=== PATIENT | female | born 1965 | race Caucasian/White ===

== ENCOUNTER 2025-07-08 14:50 | Outpatient (AMB) | payer MEDICARE, SELFPAY ==
[2025-07-08 15:01] VITALS: BMI 31.6
--- NOTE | 2025-07-08 15:01 | A.PHYSOV ---
Vital Signs 07/08/25 15:01 Height 5 ft 5 in Weight 190 lb BMI 31.6 Intake Visit Reasons: 1YR FUV Intake Note: Patient is a 59 year old female in office today for a 1 year old follow up visit. Allergies amoxicillin (From Augmentin) Allergy (Unknown, Verified 07/08/25 14:59) Unknown clavulanic acid (From Augmentin) Allergy (Unknown, Verified 07/08/25 14:59) Unknown hydromorphone (From Dilaudid) Allergy (Unknown, Verified 07/08/25 14:59) Unknown aquacel Allergy (Unknown, Uncoded 07/02/25 16:09) Unknown HPI Comments Details: History of Present Illness The patient is a 59 year old female presenting for a follow-up visit for chronic lower back pain and lumbar radiculopathy, and for evaluation of acute pain following a recent fall. She sustained a fall on a concrete step approximately 10 days ago, landing on her back, hip, and buttock. Since the fall, she has experienced excruciating right rib pain that is exacerbated by walking, moving, coughing, and sneezing, and is also very painful at night. She has a large black and blue bruise on her buttock from the impact. She has been self-treating with 1000 mg of acetaminophen and 800 mg of ibuprofen. The patient has a history of chronic lower back pain and lumbar radiculopathy, for which her condition had been stable. She underwent an L5-S1 epidural injection on December 25, 2017, which provided only short-term relief. A lumbar sacral spine MRI from October 22, 2013, was consistent with L4-L5 disc desiccation and moderate central canal stenosis. Her past medical history also includes rheumatoid arthritis and fibromyalgia. She takes cyclobenzaprine 10 mg three times a day as needed. Pain Description - Onset: The patient reports acute pain that began after a fall on a concrete step approximately 10 days ago. - Location: The pain is located in her ribs, back, and buttock. - Quality: The pain is described as excruciating and very sore. - Exacerbating factors: The pain is worse with walking, moving, coughing, and sneezing. - Interference with function: The pain makes it very painful to sleep at night. - Associated signs: The patient reports a large, black and blue bruise on her buttock where she landed. Results - Imaging: A lumbar sacral spine MRI from October 22, 2013, revealed L4-L5 disc desiccation and moderate central canal stenosis. [facility] Medical History (Updated 07/08/25 @ 15:16 by Omkar Borden DO) Rib pain on right side Muscle spasm Lumbar radiculitis Surgical History (Updated 07/02/25 @ 16:08 by Dee Calderón MA) H/O shoulder surgery History of knee surgery History of back surgery Social History (Updated 07/08/25 @ 15:02 by Dee Calderón MA) Household Members: None Alcohol intake: current Alcohol intake frequency: a few times a month Alcohol type: wine Patient Tobacco Use Status: Never used Tobacco Use of substances other than those prescribed or required for medical reasons: No Current occupational status: disabled Review of Systems Narrative Review of Systems - Musculoskeletal: Reports excruciating pain in the right ribs and soreness in the back and buttock following a fall. - Respiratory: Reports pain with coughing and sneezing but is able to take deep breaths. - Integumentary: Reports a large black and blue bruise on her buttock. Patient denies any change in bowel bladder habits. She denies any fever or chills. Physical Exam Exam Exam: Physical Exam - Chest Wall: Palpation of the ribs reveals no crepitance. Pain with palpation. - Musculoskeletal: Examination of the hip does not elicit pain with manipulation. - Musculoskeletal: Palpation of the back elicits tenderness. Dural tension signs were negative. Patient ambulates with a single-point cane. Heel walk and toe walk were not tested. Neurological examination was nonfocal. She demonstrated no upper motor neuron signs. Vital Signs: BMI result Body Mass Index 31.6 Assessment & Plan Assessment & Plan (1) Lumbar radiculitis: Code(s): M54.16 - Radiculopathy, lumbar region Category: Medical (2) Muscle spasm: Code(s): M62.838 - Other muscle spasm Category: Medical (3) Rib pain on right side: Code(s): R07.89 - Other chest pain Category: Medical Plan Pain Management - Affect: The patient states, I'm tired of being in so much pain all the time. - Analgesia: She has been taking 1000 mg of acetaminophen and 800 mg of ibuprofen for pain. - Activities of Daily Living: Her pain interferes with walking, general movement, and sleeping. - Aberrant Drug Related Behaviors: The patient requested Tylenol with Codeine but explicitly stated she does not want anything strong due to a family history of drug addiction. - Aberrant Drug Related Behaviors: She reports keeping all her medications in a safe to avoid any temptation for her family members. Plan Patient was informed and verbally consented to the use of an ambient scribe for clinic note documentation during this visit. 1. Acute Pain Due To Fall The patient's acute, excruciating pain is attributed to a fall 10 days prior, resulting in suspected rib contusion and a noted buttock contusion. Diagnostic imaging is deferred as it is unlikely to change advisor. For pain management, a prescription for acetaminophen-codeine will be provided for short-term use, along with an 18-day prednisone taper to address inflammation. The patient was instructed to avoid ibuprofen while taking prednisone and to limit total daily acetaminophen intake to 3000 mg. She is to follow up in four weeks if her symptoms do not improve for further investigation. 2. Chronic Lower Back Pain With Lumbar Radiculopathy The patient's chronic back condition is managed with cyclobenzaprine 10 mg as needed. A three-month refill of cyclobenzaprine will be sent to her mail-in pharmacy, [facility]. Discussion Notes I discussed with the patient that her acute pain is likely due to bruised ribs from her fall and that this can take about four weeks to heal. We agreed to defer x-rays at this time as the results would not alter the treatment plan. I explained the plan to prescribe Tylenol with Codeine for short-term pain relief and a prednisone taper to help with the inflammation and pain. I specifically instructed her not to take ibuprofen while on prednisone and to limit her total daily dose of acetaminophen to 3000 mg to remain on the safe side. I also informed her that I will send a refill for her cyclobenzaprine to her mail-order pharmacy. I advised her to call for a follow-up appointment in one month if her pain is not better, at which point we will investigate further. Patient Instructions - A prescription for Tylenol with Codeine has been sent to your local pharmacy. - Take the prednisone as prescribed for 18 days to help with pain and inflammation. - Do not take ibuprofen while you are taking prednisone. - Do not take more than 3000 mg of Tylenol (acetaminophen) in a 24-hour period. - A refill for your cyclobenzaprine has been sent to your mail-order pharmacy. - It may take up to four weeks for your rib pain to improve. - If you are not feeling better in one month, please call the office to schedule a follow-up appointment for further evaluation. Medications: New cyclobenzaprine 10 mg PO TID PRN 270 tabs 3RF muscle spasm 90 days M54.16 - Radiculopathy, lumbar region, M62.838 - Other muscle spasm prednisone Takes 6 tablets oral for 3 days, then 5 tablets oral for 3 days, then 4 tablets oral for 3 days, then 3 tablets oral for 3 days, then 2 tablets oral for 3 days, then 1 tablet per oral for 3 days 10 mg PO DIRECTED 63 tabs 0RF Acute rib pain M54.16 - Radiculopathy, lumbar region, M54.9 - Dorsalgia, unspecified, R07.89 - Other chest pain acetaminophen-codeine 300-30 mg Partial fill upon request 1 tab PO Q6H PRN 28 tabs 0RF pain 7 days R07.89 - Other chest pain Coding Level of Care Code Est Pt Level 4 (93120) Add On Problem Visit Only Diagnoses Lumbar radiculitis M54.16 Muscle spasm M62.838 Rib pain on right side R07.89
--- OUTSIDE RECORDS SUMMARY | 2025-07-08 19:10 | XMS_ITS | Patient Health Record ---
Author Organization [facility] Address [address] [place] [address] Care Team Providers Care Tank Driver Name Role Phone Екатерина POLANCO [place] [facility] r Unavailable Donn Gaines Unavailable [phone] Allergies Allergen (clinical drug ingredient) Drug/Non Drug Allergy documented on EMR Reaction Allergy Type Onset Date Status amoxicillin / clavulanate Augmentin Unknown Drug Allergy Active injectable steriods Unknown Drug Allergy Active Reason For Referral No Information Medications Medication SIG (Take, Route, Frequency, Duration) Notes Start Date End Date Status Gabapentin 300 MG 1 capsule before bedtime Orally Once a day Active Flovent HFA Active Fluticasone Propionate HFA 220 MCG/ACT 1 puff Inhalation Twice a day Active Ventolin HFA Active Flonase 50 MCG/ACT 1 spray in each nostril Nasally Once a day Active Ibuprofen 800 MG 1 tablet with food o r milk as needed Orally Three times a day Not-Taking Physical Therapy 3-4x per week for 3- 4 weeks 01/05/2018 Active Acetaminophen 500 MG 2 capsules as neede d Orally every 6 hrs Active Triamcinolone & Emollient 0.1 % 1 application Externally Twice a day Active Sertraline HCl 100 MG 1 tablet Orally On ce a day Active metroNIDAZOLE 0.75 % 1 application to affected area Externally Twice a day Active hydrOXYzine HCl 10 MG Orally Active oxyCODONE HCl Active Cyclobenzaprine HCl 10 MG 1 tablet as ne eded Orally Three times a day Active Cimetidine 400 MG 1 tablet at bedtime Orally Once a day Active Night Splint AFO - L1930 as directed 01/05/2018 Active Ciclopirox 0.77 % 1 application to affected area Externally Twice a day Active Keflex 500 MG 1 capsule Orally dm ry 12 hrs; Duration: 10 day(s) 01/05/2018 Active buPROPion HCl ER (XL) 300 MG 1 tablet in the morning Orally Once a day Active Night Splint AFO - L1930 as directed 09/08/2017 Active Social History Tobacco Use: Social History Observation Description Date Details (start date - stop date) Never Smoker NA - NA Tobacco Use/Smoking Question Answer Notes Are you a: nonsmoker Additional Findings: Tobacco Non-User Current no n-smoker Alcohol Screen Question Answer Notes Did you have a drink containing alcohol in the p ast year? Yes Points 0 Interpretation Negative Tobacco use other than smoking: Question Answer Notes Are you an other tobacco user? No Problems Problem Type SNOMED Code ICD Code Onset Dates Problem Status W/U Status Risk Notes Problem Localized, primary osteoarthritis of the ankle and/or foot (087829344) Primary osteoarthrit is, right ankle and foot (M19.071) Active confirmed Problem Acquired hallux valgus (35833920) Hallux valgus (acquired), right foot (M20.11) Active confirmed Problem Acquired hammer toe of right foot ([id number]) Other hammer toe(s) (acquired), right foot (M20.41) Active confirmed Plan Of Treatment Pending Test Test Name Order Date X ray : Foot, left 2V 09/08/2017 X ray : Foot, right 3V 09/08/2017 [id number], [id number]/[id number], JOINT/BURSA 0 10/06/2017 Insurance Providers Payer Name Payer Address Payer Phone Subscriber Number Group Number Insured Name Patient Relationship to Insured Coverage Start Date Coverage End Date Medicare National Govt [email or web address] [address] [place] [address] [id number] Chinyere Salas Self - patient is the insured [employer] [address] [place] [address] [phone] [id number] Chinyere Salas Self - patient is the insured Medical (General) History Medical History History ICD Code Anxiety Arthritis asthma Back,Hip,and Knee pain Broken bones Depression Fibromyalgia Headaches Measles Mumps Chicken pox Reflux ( GERD) Sciatica chronic sinusitis Thyroid disorder mood disorder L 3 - 4 L 4 - 5 L 5 - S1 osteoarthritis Surgical History Surgery Date(Month/Year) ankle surgery 01/22/2006 colonoscopy 02/06/2017 knee surgery 08/14/2015 Left knee replacement 10/23/17 Back surgery 01/2018 Hospitalization History Reason Date(Month/Year) Left knee replacement 10/23/17
--- OUTSIDE RECORDS SUMMARY | 2025-07-08 19:10 | XMS_ITS | Clinical Summary ---
Author Organization [facility] [address] [place] [address] [place] [phone] Phone Care Team Providers Care Clinical Director Name Role Phone Karen Brooks MD Primary Care Prov ider Allergies Active Allergy Reactions Criticality Noted Date Comments Amoxicillin-Pot Clavulanate Medium 11/22/2005 Augmentin Yeast infection Hydromorphone Itching,Nausea And Vomiting 12/19/2017 Dilaudid Wound Dressings 08/31/2020 Aquacel Extra Hydrofiber [Wound Dressings] Medications acetaminophen (TYLENOL 8 HOUR) 650 mg 8 hr tablet Take 1 Tablet by mouth every 8 hours as needed for Pain. 4 Active ascorbic acid (VITAMIN C) 500 mg chewable tablet Take by mouth. Activ e clindamycin (CLEOCIN) 300 mg capsule Take 2 Capsules by mouth Once. 2 capsules by mouth, 1/2 hr prior to dental work as directed 4 Active cyclobenzaprine (FLEXERIL) 10 mg tablet Take 1 Tablet by mouth 2 times daily as needed for Muscle spasms. 4 Active fluticasone HFA (FLOVENT HFA) 220 mcg/actuation inhaler Inhale 2 Puffs into the lungs 2 times daily for 180 days. 8 Active glucosamine-cho ndroit-vit C-Mn 500-400 mg capsule Take by mouth. Activ e MAGNESIUM ORAL Take by mouth. Active ZINC ORAL Take by mouth. Activ e triamcinolone (KENALOG) 0.1 % ointment Apply very thin layer to affected skin twice daily prior to moisturizer until eczema is treated. 9 Active TURMERIC ORAL Take by mouth. A ctive buPROPion XL (WELLBUTRIN XL) 150 mg 24 hr tablet TAKE 3 TABLETS EVERY MORNING 270 tablet 3 4 Active albuterol HFA (PROAIR HFA ; PROVENTIL HFA ; VENTOLIN HFA) 90 mcg/actuation inhaler Inhale 2 puffs by mouth every 6 (six) hours if needed for wheezing. 54 g 5 Active Active Problems Problem Noted Date Diagnosed Date Eczema, dyshidrotic 05/24/2024 Mild persistent asthma 10/20/2021 Assessment & Plan (01/06/2025 1:53 PM EDT): Asthma has been well-controlled. ACT is 19. Will send a new prescription for albuterol according to insurance coverage. Assessment & Plan (07/02/2024 12:08 PM EST): Asthma is well controlled. No recent visits to ER or night symptoms. Currently on albuterol as needed, and Flovent as a controller medication. We will continue same medication. Orders: Comprehensive metabolic panel; Future Lipid panel with reflex to direct LDL; Future Thyroid stimulating hormone; Future Primary insomnia 10/20/2021 Mallet finger of right hand 08/19/2019 Overview (05/24/2024): 3rd finger, minor trauma 05/11. Surgery 08/12 Osteoarthritis of finger, right 08/19/2019 Rotator cuff tear, non-traumatic, right 08/19/19 20 Overview (05/24/2024): Partial tear, had surgery 10/09 Fibromyalgia 05/26/2017 PVC's (premature ventricular contractions) 12/26 Uterine leiomyoma 08/16/2016 Lumbar disc herniation 12/03/2015 Brachial neuritis or radiculitis 11/05/2009 Overview (05/24/2024): IMO update Cervicocranial syndrome 11/05/2009 Esophageal reflux 12/01/2006 Overview (05/24/2024): H/o vocal cord lacs by ENT Allergic rhinitis 11/25/2005 Depressive disorder 11/25/2005 Assessment & Plan (01/06/2025 1:53 PM EDT): Patient follows regularly with behavioral health. She is currently on bupropion with good tolerance. No exacerbation of symptoms. Recommended to keep taking the same medication. Assessment & Plan (07/02/2024 12:08 PM EST): Follows regularly with . Currently on bupropion. No exacerbation of symptoms, no SI, HI, will continue same medication. Encouraged to keep the appts with her therapist. 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 Last TSH wnl. Will recheck before next visit. Orders: Comprehensive metabolic panel; Future Lipid panel with reflex to direct LDL; Future Thyroid stimulating hormone; Future Immunizations Immunization Administration Dates Next Due Hepatitis B (Lxblmib-Q-Qbxzx , Recombivax HB-Adult) 19yo and older 02/02/2015,09/30/2014,08/07/2014 Influenza Quadravalent, MDCK , 0.5ml, with preservative (Flucelvax) 6mo and older 05/09/2017 Influenza trivalent, 0.5mL, preservative free (Fluarix; FluLaval; Fluzone) ages 6mo and older (Afluria) 3 years and older 05/09/2016,04/13/2015,05/22/2014,2012,05/03/2011,05/26/2008,05/26/2006 Td Tetanus diptheria (Tdvax) 7yo and older 04/30/1996 Tdap Tetanus diptheria acell ular pertussis (Boostrix; Adacel) 7yo and older 12/06/2022,12/30/2008 Surgical History Surgery Date Site/Laterality Comments OTHER SURGICAL HISTORY 01/22/2006 Right PROCEDURE: UT OPEN TX DISTAL FIBULAR FRACTURE LAT MALLEOLUS OTHER SURGICAL HISTORY 2006 or earlier PROCEDURE: UT EXC B9 LESION MRGN XCP SK TG T/A/L 0.6-1.0 CM; COMMENT: lipoma under arm ESOPHAGOGASTRODUODENOSCOPY 11/03/2011 PROCEDURE: UT ESOPHAGOGASTRODUODENOSCOPY TRANSORAL DIAGNOSTIC; COMMENT: normal (fundic galnd polyps) KNEE SURGERY 08/14/2015 Left PROCEDURE: HISTORICAL KNEE SURGERY; COMMENT: removed part of meniscus COLONOSCOPY 02/06/2017 PROCEDURE: HISTORICAL COLONOSCOPY; COMMENT: inflammatory polyp and tics; repeat in 10 yrs BACK SURGERY 01/22/2018 Left PROCEDURE: HISTORICAL BACK SURGERY; COMMENT: Left L4-5 discectomy; Dr. Franco OTHER SURGICAL HISTORY 09/2018 Right PROCEDURE: UT SURGICAL ARTHROSCOPY SHOULDER LMTD DBRDMT 07/25; COMMENT: decompressive surgery HYSTEROSCOPY 07/05/2021 PROCEDURE: UT HYSTEROSCOPY BX ENDOMETRIUM&/POLYPC W/WO D&C; COMMENT: PMB, Dr. Dann Pisano Medical History Medical History Date Comments Bundle branch block, unspecified DX:Bundle branch block, unspecified; COMMENT: INCOMP RBBB Allergic rhinitis, cause unspecified DX:Allergic rhinitis, cause unspecified Depressive disorder, not els ewhere classified DX:Depressive disorder, not elsewhere classified Other diseases of vocal cords DX :Other diseases of vocal cords; COMMENT: nodules GERD (gastroesophageal reflux disease) DX:GERD (gastroesophageal reflux disease); COMMENT: PUD Unspecified hypothyroidism DX:Un specified hypothyroidism Eczema, dyshidrotic DX:Eczema, d yshidrotic History of MRSA infection DX:His tory of MRSA infection; COMMENT: in groin Fibromyalgia DX:Fibromyalgia Osteoarthritis DX:Osteoarthriti s Subclinical hypothyroidism DX:Peña bclinical hypothyroidism; COMMENT: no meds Mallet finger of right hand 08/19/2019 DX:M allet finger of right hand; COMMENT: 3rd finger, minor trauma 05/11. Surgery 08/12 Osteoarthritis of finger, right 08/19/2019 DX:Osteoarthritis of finger, right Family History Medical History Relation Name Comments Other: pancreatic cancer Aunt joselito apple Other: cardiac arrest Brother 36 YO, Bipolar, Liver disease, Narcotic use Depression Daughter Other: personality disorder Daughter Hypertension Father Other: diverticulitis Father Other: heart Father mitral valve Stroke Father mild 50's Other: Other Maternal Grandmother Other: liver Mother Other: nerve damage ankle af ter fracture Mother Other: osteoporosis Mother Other: rosacia Mother Thyroid disease Mother underactive Stomach cancer Other paternal cous in Lung cancer Paternal Grandmother ADD / ADHD Son Bipolar disorder Son Depression Son Diabetes Son Other: CHRIS Son Testicular cancer Uncle paternal Blindness Neg Hx Breast cancer Neg Hx Cataracts Neg Hx Colon cancer Neg Hx Glaucoma Neg Hx Macular degeneration Neg Hx Ovarian cancer Neg Hx Strabismus Neg Hx Uterine cancer Neg Hx Relation Name Status Comments Aunt paternal Brother Daughter Alive Father (Age 68) diverticul itis; valve replacement; AI hepatitis; [place], CVA x 5, DM; pancreatitis, panc cancer Maternal Grandfather Maternal Grandmother meningi tis Mother Alive thyroid - rosac ea; CHRIS; DM Other Paternal Grandfather cva Paternal Grandmother lung ca - - cabg Son Alive Uncle paternal Social History Tobacco Use Types Packs/Day Years Used Date Smoking Tobacco: Never Smokeless Tobacco: Never Tobacco Cessation:Counseling Given: Not Answered Alcohol Use Standard Drinks/Week Comments Yes 0 (1 standard drink = 0.6 oz pur e alcohol) Housing Instability Answer Date Recorde d Are you worried that in the next 2 months you may not have stable housing? No 07/02/2024 Food Access & Nutrition Answer Date Rec orded Do you have access to a vari ety of food including fruits and vegetables? Yes 07/02/2024 Health Literacy Answer Date Recorded How often do you need to hav e someone help you when you read instructions, pamphlets, or other written material from your doctor or pharmacy? Never 07/02/2024 Caregiver: How often do you need to have someone help you when you read instructions, pamphlets, or other written material from your doctor or pharmacy? Not on file 07/02/2024 Financial Risk Answer Date Recorded How hard is it for you to pa y for the very basics like food, housing, medical care, and air conditioning / heating? Not very hard 07/02/2024 Transportation Answer Date Recorded Has the lack of transportati on kept you from meetings, work, or from getting things needed for daily living? No Has the lack of transportati on kept you from medical appointments or from getting medications? No 07/02/2024 Social Isolation Answer Date Recorded How often do you feel lonely or isolated from th ose around you? Never 07/02/2024 Food Risk Answer Date Recorded Within the past 12 months we worried whether our food would run out before we got money to buy more. Never true 07/02/2024 Within the past 12 months th e food we bought just didn't last and we didn't have money to get more. Never true 07/02/2024 Dependent Care Answer Date Recorded Do you need help finding or paying for care for your loved ones. For example, child welfare counselor or elderly care for an older adult? No 07/02/2024 Education Answer Date Recorded Do you think completing more education or training, like finishing a GED, going to college, or learning a trade, would be helpful for you? No 07/02/2024 Employment and Income Answer Date Recor ded During the last four weeks, have you been actively looking for work? No 07/02/2024 Living Situation Answer Date Recorded What is your living situation? Unrecognized valu e 07/02/2024 Comments No Sex and Gender Information Value Date Recorded Sex Assigned at Not on file Legal Sex Female 7:10 AM EST Gender Identity Not on file Sexual Orientation Straight 05/28/2024 7: 48 PM EST Last Filed Vital Signs Vital Sign Reading Time Taken Comments Blood Pressure 113/62 01/06/2025 10:55 AM EDT Pulse 69 01/06/2025 10:55 AM EDT Temperature 35.9 C (96.7 F) 01/06/2025 10:55 AM EDT Respiratory Rate 15 01/06/2025 10:55 AM EDT Oxygen Saturation - - Inhaled Oxygen Concentration - - Weight 86.4 kg (190 lb 6.4 oz) 01/06/2025 10:55 AM EDT Height 162.6 cm (5' 4 ) 01/06/2025 10:55 AM EDT Body Mass Index 32.68 01/06/2025 10:55 AM EDT Plan of Treatment Upcoming Encounters Date Type Department Care Team (Late st Contact Info) Description 07/09/2025 9:30 AM EST Office Visit Adult Medicine [facility] [address], [place] [phone] [place] [address] [place], [place] 07/25/2025 1:50 PM EST Appointment Radiology Department - [address] [phone] Health Maintenance Due Date Last Done Comments Pneumococcal Vaccine: 50+ Years (1 of 2 - PCV) 1984 RSV Immunization Adult Patients (1 - Risk 50-74 years 1-dose series) 12/10/2015 Zoster Vaccines (1 of 2) 12/10/2015 HIV Screening 07/02/2022 Medicare Annual Wellness Visit 07/02/2022 COVID-19 Vaccine (1 - season) 2025 Influenza Vaccine (#1) 2025 7, 05/09/2016, 04/13/2015, Additional history exists Social Influencers of Health Screening 07/02/2025 07/02/2024 Cervical Cancer Screening: HPV 04/26/2026 04/26/2021 Breast Cancer Screening 05/23/2026 05/23/20 24, 05/23/2024, 05/13/2023, Additional history exists Colorectal Cancer Screening: Colonoscopy 02/06/2027 02/06/2017 Cholesterol Screening (Lipid Panel) 12/30/2029 12/30/2024, 11/24/2023, 11/24/2023 DTaP,Tdap,and Td Vaccines (4 - Td or Tdap) 12/06/2032 12/06/2022, 12/30/2008, 04/30/1996 Osteoporosis Screening (Bone Density Screening) 10/17/2034 10/17/2024 Hepatitis B Vaccines Completed 02/02/2015, 09/30/2014, 08/07/2014 Hepatitis C Screening Completed 07/10/2015 Depression Screening Completed 01/06/2025, 12/19/19 24 HIB Vaccines Aged Out No longer eligi ble based on patient's age to complete this topic HPV Vaccines Aged Out No longer eligi ble based on patient's age to complete this topic Hepatitis A Vaccines Aged Out No long er eligible based on patient's age to complete this topic IPV Vaccines Aged Out No longer eligi ble based on patient's age to complete this topic MMR Vaccines Aged Out No longer eligi ble based on patient's age to complete this topic Meningococcal ACWY Vaccine Aged Out N o longer eligible based on patient's age to complete this topic Meningococcal B Vaccine Aged Out No l onger eligible based on patient's age to complete this topic RSV Immunization Patients Under 20 months Aged Out No longer eligible based on patient's age to complete this topic Varicella Vaccines Aged Out No longer eligible based on patient's age to complete this topic Procedures Procedure Name Priority Date/Time Associated Diagnosis Comments LIPID PANEL WITH REFLEX TO DIRECT LDL Routine 12/30/2024 12:01 PM EDT Depressive disorder Mild persistent asthma without complication Subclinical hypothyroidism BD BONE DENSITY DXA AXIAL SKELETON Routine 10/17/2024 10:23 AM EDT Encounter for screening for osteoporosis Postmenopausal SCREENING MAMMOGRAPHY BI 2-VIEW BREAST INC CAD Routine 05/23/2024 11:09 AM EDT Encounter for screening mammogram for malignant neoplasm of breast DEPRESSION SCREENING Routine 12/19/2023 HPV Routine 04/26/2021 COLONOSCOPY Routine 02/06/2017 HEPATITIS C SCREENING Routine 07/10/2015 from Last 3 Months or Most Recently Relevant to Health Maintenance Results * (ABNORMAL) Lipid panel with reflex to direct LDL (12/30/2024 12:01 PM EDT) Cholesterol 213(H) 0 - 200 mg/dL LAB CHEMISTRY METHOD 12/30/2024 6:11 PM EDT [facility] Triglycerides 87 0 - 150 mg/dL LAB CHEMISTRY METHOD 12/30/2024 6:11 PM EDT [facility] HDL 64 >=40 mg/dL LAB CHEMISTRY METHOD 12/30/2024 6:11 PM EDT [facility] LDL Calculated 132(H) 0 - 100 mg/dL LAB CHEMISTRY METHOD 12/30/2024 6:11 PM EDT [facility] VLDL Cholesterol Enrico 17.4 mg/dL LAB CHEMISTRY METHOD 12/30/2024 6:11 PM EDT [facility] Non HDL Chol. (LDL+VLDL) 149(H) <145 mg/dL LAB CHEMISTRY METHOD 12/30/2024 6:11 PM EDT [facility] Chol/HDL Ratio 3.3 0.0 - 4.4 LAB CHEMISTRY METHOD 12/30/2024 6:11 PM EDT [facility] Blood Venous blood specimen / Unknown Venipuncture / Unknown 12/30/2024 12:01 PM EDT 12/30/2024 12:01 PM EDT us Karen Brooks MD LAB BLOOD ORDERABL ES Final Result [facility] [address] [place] [address], [place] [phone] * BD Bone Density DXA Axial Skeleton (10/17/2024 10:23 AM EDT) Anatomical Region Laterality Modality Wrist, Hip, L-spine Bone Densito metry 10/17/2024 5:22 PM EDT Impressions 10/17/2024 5:27 PM EDT Osteopenia Reference Information: The T-score is the number of standard deviations above or below the standard which is normal for young adults at their peak bone mineral density. The World Health Organization (WHO) interprets the T-scores as follows: At or above -1 SD Normal bone density Between -1 and -2.5 SD Osteopenia At or below -2.5 SD Osteoporosis -------- FINAL REPORT -------- Dictated By: Thuy Alvarado Dictated Date: 10/17/2024 17:22 ET Assigned Physician: Thuy Alvarado Reviewed and Electronically Signed By: Thuy Alvarado Signed Date: 10/17/2024 17:27 ET Workstation ID: [id number] Transcribed By: Self Edit Transcribed Date: 10/17/2024 17:22 ET Narrative 10/17/2024 5:27 PM EDT STUDY: DUAL ENERGY X-RAY ABSORPTIOMETRY / DXA REASON FOR EXAM: Female, 58 years old Bone density screening, risk factors TECHNIQUE: Bone Mineral Density (BMD) measurements of the lumbar spine and left hip were obtained using [employer] W ([id number]/N [id number]). COMPARISON: January 13, 2016 FINDINGS: L1-L4 BMD: 0.980 g/cm2 L1-L4 T score: -0.6. This corresponds to Normal bone density. This represents a -1.6 % decrease in bone density compared with prior exam from January 13, 2016. Left femoral neck BMD: 0.725 g/cm2 Left femoral neck T score: -1.1. This corresponds to osteopenia. Left total hip BMD: 0.956 g/cm2 Left total hip T score: 0.1. This corresponds to Normal bone density. This represents a -1.4 % decrease in bone density compared with prior exam from January 13, 2016. * - Indicates a statistically significant change. FRAX score: 10 year risk of major osteoporotic fracture 11%, 10 year risk of hip fracture 0.7% Procedure Note Thuy Alvarado MD - 10/17/2024 STUDY: DUAL ENERGY X-RAY ABSORPTIOMETRY / DXA REASON FOR EXAM: Female, 58 years old Bone density screening, riskfactors TECHNIQUE: Bone Mineral Density (BMD) measurements of the lumbar spineand left hip were obtained using [employer] W ([id number]/N [id number]). COMPARISON: January 13, 2016 FINDINGS: L1-L4 BMD: 0.980 g/cm2 L1-L4 T score: -0.6. This corresponds to Normal bone density. This represents a -1.6 % decrease in bone density compared with prior examfrom January 13, 2016. Left femoral neck BMD: 0.725 g/cm2 Left femoral neck T score: -1.1. This corresponds to osteopenia. Left total hip BMD: 0.956 g/cm2 Left total hip T score: 0.1. This corresponds to Normal bone density. This represents a -1.4 % decrease in bone density compared with prior examfrom January 13, 2016. * - Indicates a statistically significant change. FRAX score: 10 year risk of major osteoporotic fracture 11%, 10 year riskof hip fracture 0.7% IMPRESSION: Osteopenia Reference Information: The T-score is the number of standard deviations above or below thestandard which is normal for young adults at their peak bone mineraldensity. The World Health Organization (WHO) interprets the T-scores asfollows: At or above -1 SD Normal bone density Between -1 and -2.5 SD Osteopenia At or below -2.5 SD Osteoporosis -------- FINAL REPORT -------- Dictated By: Thuy Alvarado Dictated Date: 10/17/2024 17:22 ET Assigned Physician: Thuy Alvarado Reviewed and Electronically Signed By: Thuy Alvarado Signed Date: 10/17/2024 17:27 ET Workstation ID: [id number] Transcribed By: Self Edit Transcribed Date: 10/17/2024 17:22 ET Karen Brooks MD IMG DXA PROCEDURES Final Result * SCREENING MAMMOGRAPHY BI 2-VIEW BREAST INC CAD (05/23/2024 11:09 AM EDT) Anatomical Region Laterality Modality Radiographic Emelia ging 05/13/2023 10:0 1 AM EDT Narrative 05/23/2024 4:50 PM EDT This is a summary report. The complete report is available in the patient's medical record. If you cannot access the medical record, please contact the sending organization for a detailed fax or copy. Study: SCREENING MAMMOGRAPHY BI 2-VIEW BREAST INC CAD Technique: Bilateral full-field digital screening mammography is obtained and read in conjunction with computer aided detection. Tomosynthesis as well as 2D C-View imaging were obtained. Comparison: Comparison made to multiple priors, most recent May 13, 2023, and most remote April 23, 2015. Breast composition: There are scattered areas of fibroglandular density. Bilateral breasts: No significant masses, suspicious calcifications or other abnormalities are seen in either breast. IMPRESSION: Impression: Bilateral breasts: Negative, no specific mammographic evidence of malignancy. Normal interval follow-up is recommended in 12 months. BI-RADS: Category 1: Negative [address] [id number] [phone] Procedure Note Thuy Alvarado MD - 05/25/2024 This is a summary report. The complete report is available in thepatient's medical record. If you cannot access the medical record, pleasecontact the sending organization for a detailed fax or copy. Study: SCREENING MAMMOGRAPHY BI 2-VIEW BREAST INC CAD Technique: Bilateral full-field digital screening mammography is obtainedand read in conjunction with computer aided detection. Tomosynthesis aswell as 2D C-View imaging were obtained. Comparison: Comparison made to multiple priors, most recent April, and most remote April 23, 2015. Breast composition: There are scattered areas of fibroglandular density. Bilateral breasts: No significant masses, suspicious calcifications orother abnormalities are seen in either breast. IMPRESSION: Impression: Bilateral breasts: Negative, no specific mammographic evidence ofmalignancy. Normal interval follow-up is recommended in 12 months. BI-RADS: Category 1: Negative [address] [phone] us Susi Walton MD IMG XR PROCEDURES Final Res ult * Depression Screening (12/19/2023) Depression Screening Abstracted Historical Provider HEALTH MAINTENANCE Final Result * Cervical Cancer Screening: HPV (04/26/2021) [facility] Cervical Cancer Screening: HPV Negative, Abstracted Historical Provider HEALTH MAINTENANCE Final Result * Colonoscopy (02/06/2017) [facility] Colonoscopy No Interpretation , Abstracted Anatomical Region Laterality Modality Other [facility] Provider HEALTH MAINTENANCE Final Result * Hepatitis C Screening (07/10/2015) [facility] Hepatitis C Screening Abstracted [facility] Provider HEALTH MAINTENANCE Final Result from Last 3 Months or Most Recently Relevant to Health Maintenance Insurance MEDICARE [facility] Care Teams Clinical Director Relationship Specialty Start Date End Date Karen Brooks MD [address] [place] [phone] PCP - General Internal Medicine 03/17/22
--- OUTSIDE RECORDS SUMMARY | 2025-07-08 19:10 | XMS_ITS ---
Author Name [facility] Organization Unknown Care Team Organization Name Specialty Phone Email Start Date End Da te [facility] ACO 03/12/2025 [facility] Karen Evans Primary Care 03/30/2023 03/11/2024 [facility] Termed, PROVIDER Primary Care 05/31/202202/21
== END 2025-07-08 15:16 | disposition home or self-care (01) ==
LOC: HO.HPHYS 14:50
PROVIDERS: Visit Provider Physical Medicine & Rehabilitation
DX: M54.16 Radiculopathy, lumbar region (principal); M62.838 Other muscle spasm; R07.89 Other chest pain
CPT/HCPCS: 99214; G2211

== ENCOUNTER → 2025-07-08 14:50 | Outpatient (BNVA) | payer MEDICARE, SELFPAY | PROVIDERS: Visit Provider Physical Medicine & Rehabilitation | DX: M54.16 Radiculopathy, lumbar region (principal); M62.838 Other muscle spasm; R07.89 Other chest pain | CPT/HCPCS: 99212 ==